=== PATIENT | male | born 1965 | race Asian ===

== ENCOUNTER 2021-04-03 06:46 | Emergency (ER) | payer BC, OTHER ==
[~2021-04-03] VITALS: Ht 170.2 cm; Wt 70.8 kg
[2021-04-03 06:47] VITALS: BP 129/80
[2021-04-03] MEDS ORDERED: ASPirin 81 mg TAB PO ONE (07:00)
[2021-04-03 07:08] LABS: Basophils # (auto) 0.1 10 ^3/uL (0-0.2); Basophils % (auto) 0.9 % (0.0-2.0); Eosinophils # (auto) 0 10 ^3/uL (0-0.8); Eosinophils % (auto) 0.8 % (0.0-7.0); Hematocrit 44.4 % (41.0-53.0); Hemoglobin 15.2 g/dL (13.5-17.5); Lymphocytes # (auto) 1.7 10 ^3/uL (0.4-5.4); Lymphocytes % (auto) 30.6 % (10.0-50.0); Mean Corpuscular Hemoglobin 31.9 pg (28.0-32.0); Mean Corpuscular Hgb Conc. 34.2 g/dL (32.0-36.0); Mean Corpuscular Volume 93.3 fL (80.0-100.0); Monocytes # (auto) 0.4 10 ^3/uL (0-1.3); Monocytes % (auto) 7.2 % (0.0-12.0); Neutrophils # (auto) 3.4 10 ^3/uL (1.6-8.6); Neutrophils % (auto) 60.5 % (37.0-80.0); Nucleated Red Blood Cells % 0.1 %; Red Blood Cells 4.75 10^6/uL (4.5-5.90); Red Cell Distribution Width 12.1 % (11.8-14.3); White Blood Cell 5.7 10^3/uL (4.4-10.8)
[2021-04-03 07:22] LABS: Calcium 8.7 mg/dL (8.5-10.1); Chloride 107 mmol/L (98-107); Sodium 140 mmol/L (136-145)
[2021-04-03 07:30] LABS: Alanine Aminotransferase 42 U/L (16-61); Albumin 3.9 g/dL (3.4-5.0); Alkaline Phosphatase 73 U/L (45-117); Anion Gap 6 (5-15); Aspartate Aminotransferase 25 U/L (15-37); Blood Urea Nitrogen 32 mg/dL (7-18); Carbon Dioxide 27 mmol/L (21-32); GFR African American 103 mL/min; GFR Non-African American 85 mL/min; Glucose 148 mg/dL (74-106); Total Protein 7.6 g/dL (6.4-8.2)
== END 2021-04-03 17:00 | disposition home or self-care (01) ==
LOC: ER 06:46
DX: R07.89 Other chest pain (principal); F41.9 Anxiety disorder, unspecified; E78.5 Hyperlipidemia, unspecified; Z20.822 Contact with and (suspected) exposure to COVID-19
CPT/HCPCS: 36415; 71045; 80053; 84484; 85025; 87426; 93005